=== PATIENT | female | born 1950 | race American Indian/Alaskan Native ===

== ENCOUNTER 2020-10-22 06:35 | Emergency (ER) | payer MEDICARE ==
[2020-10-22] MEDS ORDERED: ASPIRIN 81 MG TAB CHEW PO ONE (07:55)
--- NOTE | 2020-10-22 07:59 | Event Note ---
ED Screening Note Date of service: 10/22/20 Time: 07:56 ED Screening Note: 70-year-old female patient with history of stroke, heart murmur, multiple strokes with residual right lower extremity weakness, diabetes, and hypertension presents to the emergency department with complaints of fatigue and dyspnea on exertion starting yesterday. No preceding fall, trauma, injury. Patient is not anticoagulated. Hypertensive in triage. General: Awake, appropriately interactive, no acute distress. Neck: Supple. Full range of motion intact. Cardiovascular: Regular rate and rhythm, (+) murmur right sternal border. Bilateral pretibial pitting edema. Normal peripheral perfusion. Pulmonary: No respiratory distress. Patient is speaking normally without use of accessory muscles. Skin: No apparent rashes or lesions. Neurological: No facial asymmetry. Speech is clear. Follows commands. Patient is alert and oriented. Musculoskeletal: Moves all four extremities spontaneously with normal range of motion. Psych: Cooperative. Appropriate mood and affect. EKG reviewed in triage shows normal sinus rhythm with a ventricular rate of 84 bpm. Left axis deviation. Poor R wave progression. Lateral T wave inversions present; no old EKG available for comparison. I have greeted and performed a focused rapid initial assessment of this patient. A comprehensive ED assessment and evaluation of the patient, analysis of all test results, and completion of the medical decision-making process will be conducted by additional ED providers. This initial assessment/diagnostic orders/clinical plan/treatment(s) is/are subject to change based on patients health status, clinical progression and re-assessment. Further treatment and workup at subsequent clinical provider's discretion. Patient/guardian urged not to elope from the ED as their condition may be serious if not clinically assessed and managed.
--- NOTE | 2020-10-22 08:36 | XRay Report ---
CHEST 2 VIEWS INDICATION: dyspnea. COMPARISON: None FINDINGS: Support devices: None. Heart: Within normal limits. Lungs/pleura: No acute air space or interstitial disease. No pneumothorax. Additional findings: None. IMPRESSION: No acute findings. Signer Name: Harris Tinsley Jr, MD Signed: 10/22/2020 8:32 AM Workstation Name: [id number]
[2020-10-22 08:39] LABS: Basophils % (Auto) 0.4 % (0.0-1.8); Eosinophils # (Auto) 0.2 K/mm3 (0.0-0.4); Eosinophils % (Auto) 2.4 % (0.0-4.3); Hematocrit 39.1 % (30.3-42.9); Hemoglobin 12.4 gm/dl (10.1-14.3); Lymphocytes # (Auto) 2.4 K/mm3 (1.2-5.4); Lymphocytes % (Auto) 32.3 % (13.4-35.0); Mean Corpuscular HGB Conc 32 % (30-34); Mean Corpuscular Volume 89 fl (79-97); Monocytes # (Auto) 0.7 K/mm3 (0.0-0.8); Monocytes % (Auto) 9.4 % (0.0-7.3); Platelet Count 198 K/mm3 (140-440); Red Cell Distribution Width 15.9 % (13.2-15.2)
[2020-10-22 08:53] LABS: INR 1.02 (0.87-1.13)
[2020-10-22 08:54] LABS: Partial Thromboplastin Time 34.4 Sec. (24.2-36.6)
[2020-10-22 09:11] LABS: Alanine Aminotransferase 15 units/L (7-56); Albumin 3.8 g/dL (3.9-5); BUN/Creatinine Ratio 11; Blood Urea Nitrogen 9 mg/dL (7-17); Calcium 9.1 mg/dL (8.4-10.2); Hemolysis Index 6
--- NOTE | 2020-10-22 11:16 | Emergency Department Report ---
HPI - General Chief Complaint: Weakness Time Seen by Provider: 10/22/20 10:58 - HPI HPI: Room 17 The patient is a 70-year-old female present with a chief complaint of fatigue. The patient states for 1 day she has had fatigue with any type of activity. Patient denies shortness of breath but states at rest she feels fine. Patient denies nausea vomiting or diarrhea. Patient denies history of fever. Patient states last time she felt this way was when she had her intestinal mass that led to her becoming anemic. ED Past Medical Hx - Past Medical History Previous Medical History?: Yes Hx Hypertension: Yes Hx CVA: Yes Hx Diabetes: Yes - Surgical History Past Surgical History?: Yes Additional Surgical History: 2 hip replacements, hernia repair, some intestines removed. - Family History Family history: no significant - Social History Smoking Status: Current Every Day Smoker (1/2 pack/day) Substance Use Type: None (Denies illicit drug use), Alcohol (Occasional) ED Review of Systems ROS: Stated complaint: SICK Other details as noted in HPI Constitutional: weakness Eyes: denies: eye pain ENT: denies: throat pain Respiratory: denies: shortness of breath Cardiovascular: denies: dyspnea on exertion Endocrine: no symptoms reported Gastrointestinal: denies: abdominal pain, nausea, vomiting, diarrhea Genitourinary: denies: dysuria Musculoskeletal: denies: back pain Neurological: denies: headache Physical Exam - Physical Exam Vital Signs: Vital Signs 10/22/20 07:10 Temperature 98.8 F Pulse Rate 76 Respiratory 18 Rate Blood Pressure 204/80 [Right] O2 Sat by Pulse 97 Oximetry Physical Exam: GENERAL: The patient is well-developed well-nourished female lying on stretcher not appearing to be in acute distress. [] HEENT: Normocephalic. Atraumatic. Extraocular motions are intact. Patient has moist mucous membranes. NECK: Supple. Trachea midline CHEST/LUNGS: Clear to auscultation. There is no respiratory distress noted. HEART/CARDIOVASCULAR: Regular. There is no tachycardia. There is no gallop rub or murmur. ABDOMEN: Abdomen is soft, nontender. Patient has normal bowel sounds. There is no abdominal distention. SKIN: There is no rash. There is no edema. There is no diaphoresis. NEURO: The patient is awake, alert, and oriented. The patient is cooperative. The patient has no focal neurologic deficits. The patient has normal speech MUSCULOSKELETAL: There is no evidence of acute injury. ED Course Vital Signs 10/22/20 07:10 Temperature 98.8 F Pulse Rate 76 Respiratory 18 Rate Blood Pressure 204/80 [Right] O2 Sat by Pulse 97 Oximetry ED Medical Decision Making - Lab Data Result diagrams: 10/22/20 08:08 10/22/20 08:08 Laboratory Tests 10/22/20 10/22/20 10/22/20 08:08 08:08 08:08 WBC 7.3 RBC 4.40 Hgb 12.4 Hct 39.1 MCV 89 MCH 28 MCHC 32 RDW 15.9 H Plt Count 198 Lymph % (Auto) 32.3 [place] % (Auto) 9.4 H Eos % (Auto) 2.4 Baso % (Auto) 0.4 Lymph # (Auto) 2.4 [place] # (Auto) 0.7 Eos # (Auto) 0.2 Baso # (Auto) 0.0 Seg Neutrophils % 55.5 Seg Neutrophils # 4.0 PT 13.2 INR 1.02 APTT 34.4 VBG pH Sodium 142 Potassium 4.3 Chloride 105.4 Carbon Dioxide 27 Anion Gap 14 BUN 9 Creatinine 0.8 Estimated GFR > 60 BUN/Creatinine Ratio 11 Glucose 129 H Calcium 9.1 Magnesium 2.00 Total Bilirubin 0.50 AST 16 ALT 15 Alkaline Phosphatase 95 Troponin T < 0.010 NT-Pro-B Natriuret Pep 110.9 Total Protein 6.9 Albumin 3.8 L Albumin/Globulin Ratio 1.2 TSH Free T4 10/22/20 10/22/20 10/22/20 08:08 10:39 Unknown WBC RBC Hgb Hct MCV MCH MCHC RDW Plt Count Lymph % (Auto) [place] % (Auto) Eos % (Auto) Baso % (Auto) Lymph # (Auto) [place] # (Auto) Eos # (Auto) Baso # (Auto) Seg Neutrophils % Seg Neutrophils # PT INR APTT VBG pH 7.324 Sodium Potassium Chloride Carbon Dioxide Anion Gap BUN Creatinine Estimated GFR BUN/Creatinine Ratio Glucose Calcium Magnesium Total Bilirubin AST ALT Alkaline Phosphatase Troponin T < 0.010 NT-Pro-B Natriuret Pep Total Protein Albumin Albumin/Globulin Ratio TSH 1.430 Free T4 1.21 - EKG Data -: EKG Interpreted by Sd EKG shows normal: sinus rhythm Rate: normal - EKG Data When compared to previous EKG there are: previous EKG unavailable Interpretation: nonspecific ST-T wave keny (T wave inversion in lead I and aVL) - Radiology Data Radiology results: report reviewed (Chest x-ray), image reviewed (Chest x-ray) interpreted by me: Chest x-ray-no focal infiltrates, no pneumothorax. [facility] [address] [place] [address] XRay Report Signed Patient: ALONZO JIMÉNEZ MR#: [id number] : 1950 Acct:[id number] Age/Sex: 70 / F ADM Date: 10/22/20 Loc: ED Attending Dr: Eric sargent Physician: ALEIDA ALBERTO Date of Service: 10/22/20 Procedure(s): XR chest routine 2V Accession Number(s): [id number] cc: ALEIDA ALBERTO Fluoro Time In Minutes: CHEST 2 VIEWS INDICATION: dyspnea. COMPARISON: None FINDINGS: Support devices: None. Heart: Within normal limits. Lungs/pleura: No acute air space or interstitial disease. No pneumothorax. Additional findings: None. IMPRESSION: No acute findings. Signer Name: Harris Tinsley Jr, MD Signed: 10/22/2020 8:32 AM Workstation Name: [id number] Transcribed By: TTR Dictated By: HARRIS TINSLEY JR, MD Electronically Aut henticated By: HARRIS TINSLEY JR, MD Signed Date/Time: 10/22/20831 DD/ 1 TD/TT: Print Cancel - Differential Diagnosis Symptomatic anemia, hypothyroidism, hyponatremia, electrolyte imbalance Critical care attestation.: If time is entered above; I have spent that time in minutes in the direct care of this critically ill patient, excluding procedure time. ED Disposition Clinical Impression: Hypertension, Fatigue Disposition: DC-01 TO HOME OR SELFCARE Is pt being admited?: No Does the pt Need Aspirin: No Condition: Stable Instructions: Hypertension (ED), Fatigue, Preventing Hypertension, Managing Your Hypertension Additional Instructions: Return to the emergency department should you develop worsening symptoms, inability to tolerate food or liquids, high fever or any other concerns Referrals: PRIMARY CAREMD [Primary Care Provider] - 3-5 Days Time of Disposition: 13:36
[2020-10-22] MEDS ORDERED: cloNIDine 0.2 MG TAB PO ONE (11:42)
[2020-10-22 13:19] LABS: Free T4 (Free Thyroxine) 1.21 ng/dL (0.76-1.46)
[2020-10-22 13:55] VITALS: BP 179/82
--- NOTE | 2020-10-23 13:51 | Electrocardiograph Report ---
[facility] Test Date: 2020-10-22 Test Time: 07:14:27 Pat Name: ALONZO JIMÉNEZ Department: Room: Gender: F Head Rigger: : 1950 Requested By: CATINA LONG Order Number: [id number] Reading MD: Christiano Ospina Measurements Intervals [place] Rate: 84 P: 64 TX: 175 QRS: 7 QRSD: 95 T: 94 QT: 411 QTc: 486 Interpretive Statements Sinus rhythm Probable left ventricular hypertrophy Nonspecific T abnormalities, lateral leads No previous ECG available for comparison Electronically Signed On 10-23-2020 13:51:12 EDT by Christiano Ospina
== END 2020-10-22 13:50 | disposition home or self-care (01) ==
LOC: ED 06:35
DX: I10 Essential (primary) hypertension (principal); R53.83 Other fatigue; E11.9 Type 2 diabetes mellitus without complications; Z86.73 Personal history of transient ischemic attack (TIA), and cerebral infarction without residual deficits; F17.200 Nicotine dependence, unspecified, uncomplicated; Z98.890 Other specified postprocedural states
CPT/HCPCS: 36415; 71046; 80053; 82805; 83735; 83880; 84439; 84443; 84484; 85025; 85610; 85730; 93005

== ENCOUNTER 2021-01-17 18:50 | Emergency (ER) | payer MEDICARE ==
[2021-01-18] MEDS ORDERED: SODIUM CHLORIDE 0.9% 1000 ML 1,000 ML IV ONE (07:57)
--- NOTE | 2021-01-18 07:58 | Emergency Department Report ---
ED General Adult HPI - General Chief complaint: GI Bleed Stated complaint: BLOOD IN STOOL, UPPER RESP INFECT Time Seen by Provider: 01/18/21 07:37 Source: patient Mode of arrival: Ambulatory Limitations: No Limitations - History of Present Illness Initial comments: 7-year-old female with a past medical history of hypertension, diabetes, anemia, "heart murmur", "bronchitis" and a history of tobacco use presents to the ER today with complaints of black stools and a cough. Patient states that she noticed that she has been having black stools since last week Monday and then today she started with pain in her lower abdomen which has been constant in ruby ure. She states that she had diarrhea about 2 weeks ago for about 2 to 3 days but that resolved after taking Imodium. She reports nausea but no vomiting. She is not currently on any iron supplements, nor has she taken any Pepto-Bismol in the past 3 to 4 weeks. 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 She is not any blood thinners. Patient also states that she started with a cold about a week ago and has been persistent. She reports sinus drainage, nasal congestion, productive cough with white phlegm, she had some mild intermittent wheezing but she states that it went away after taking [id number] Benadryl. She denies any chest pain or shortness of breath. She denies any fever or chills with her cold. She denies any ill contacts. She states that she has been taking NyQuil and Benadryl and Mucinex without much relief. She states that she is COVID-19 vaccinated. She received the maternal vaccine November 2020. She states that since she has been sick she did not take a COVID-19 test. Complaint: Black stools; low abdominal; cough -: week(s) - Related Data Previous Rx's Medication Instructions Recorded Last Taken Type Azithromycin [Zithromax Z-RD] 250 mg PO DAILY #1 pack 01/18/21 Unknown Rx Benzonatate [Tessalon Perles] 100 mg PO Q8HR PRN #30 capsule 01/18/21 Unknown Rx Fluticasone [Flonase] 2 spray NS QDAY #1 bottle 01/18/21 Unknown Rx Levalbuterol Hfa 45 Mcg/Puff 2 puff IH Q4H PRN #1 inhalation 01/18/21 Unknown Rx [Xopenex Hfa (Nf)] Allergies Allergy/AdvReac Type Severity Reaction Status Date / Time No Known Allergies Allergy Unverified 01/17/21 21:26 ED Review of Systems ROS: Stated complaint: BLOOD IN STOOL, UPPER RESP INFECT Other details as noted in HPI Comment: All other systems reviewed and negative Constitutional: denies: chills, fever Eyes: denies: eye pain, eye discharge, vision change ENT: denies: ear pain, throat pain, dental pain, hearing loss, epistaxis, congestion Respiratory: cough. denies: shortness of breath, SOB with exertion, SOB at rest, wheezing Cardiovascular: denies: chest pain, palpitations, dyspnea on exertion, edema, syncope, paroxysmal nocturnal dyspnea Gastrointestinal: abdominal pain, nausea, melena. denies: vomiting, diarrhea, constipation, hematemesis Genitourinary: denies: urgency, dysuria, frequency, hematuria, discharge, abnormal menses, dyspareunia Musculoskeletal: denies: back pain, joint swelling, arthralgia, myalgia Skin: denies: rash, lesions Neurological: denies: headache, weakness, numbness, paresthesias, confusion, abnormal gait, vertigo Psychiatric: denies: anxiety, depression, auditory hallucinations, visual hallucinations, homicidal thoughts, suicidal thoughts Hematological/Lymphatic: denies: easy bleeding, easy bruising, swollen glands ED Past Medical Hx - Past Medical History Previous Medical History?: Yes Hx Hypertension: Yes Hx CVA: Yes Hx Diabetes: Yes Hx Arthritis: Yes - Surgical History Past Surgical History?: Yes Additional Surgical History: 2 hip replacements, hernia repair, some intestines removed. - Social History Smoking Status: Never Smoker - Medications Home Medications: Home Medications Medication Instructions Recorded Confirmed Last Taken Type Azithromycin [Zithromax Z-RD] 250 mg PO DAILY #1 pack 01/18/21 Unknown Rx Benzonatate [Tessalon Perles] 100 mg PO Q8HR PRN #30 capsule 01/18/21 Unknown Rx Fluticasone [Flonase] 2 spray NS QDAY #1 bottle 01/18/21 Unknown Rx Levalbuterol Hfa 45 Mcg/Puff 2 puff IH Q4H PRN #1 inhalation 01/18/21 Unknown Rx [Xopenex Hfa (Nf)] ED Physical Exam - General Limitations: No Limitations General appearance: alert, in no apparent distress - Head Head exam: Present: atraumatic, normocephalic, normal inspection - Eye Eye exam: Present: normal appearance, PERRL, EOMI Pupils: Present: normal accommodation - ENT ENT exam: Present: normal exam, mucous membranes moist, TM's normal bilaterally - Neck Neck exam: Present: normal inspection, full ROM - Respiratory Respiratory exam: Present: normal lung sounds bilaterally, wheezes (Faint expiratory wheezing noted in the left lung field). Absent: respiratory distress, rales, rhonchi, stridor - Cardiovascular Cardiovascular Exam: Present: regular rate, normal rhythm, normal heart sounds - GI/Abdominal GI/Abdominal exam: Present: soft, tenderness (Tenderness to palpation suprapubic area with mild guarding but no rebound, no rigidity and no abdominal distention). Absent: distended, guarding, rebound, rigid - Rectal Rectal exam: Present: normal rectal tone, heme (-) stool, other (Dark green stool noted) - Neurological Exam Neurological exam: Present: alert, oriented X3, CN II-XII intact, normal gait - Psychiatric Psychiatric exam: Present: normal affect, normal mood - Skin Skin exam: Present: intact ED Course Vital Signs 01/17/21 01/18/21 21:28 10:58 Temperature 97.8 F Pulse Rate 83 88 Respiratory 18 18 Rate Blood Pressure 158/72 Blood Pressure 157/82 [Left] O2 Sat by Pulse 93 100 Oximetry ED Medical Decision Making - Lab Data Result diagrams: 01/18/21 08:29 01/18/21 08:29 - Radiology Data Radiology results: report reviewed Patient: ALONZO JIMÉNEZ MR#: [id number] : 1950 Acct:[id number] Age/Sex: 70 / F ADM Date: 01/17/21 Loc: ED Attending Dr: Ordering Physician: MILTON MCDOWELL Date of Service: 01/18/21 Procedure(s): XR chest routine 2V Accession Number(s): [id number] cc: MILTON MCDOWELL Fluoro Time In Minutes: CHEST 2 VIEWS INDICATION: Cough/wheezing/ black stools. COMPARISON: 02/21/2021 FINDINGS: Support devices: None. Heart: Within normal limits. Lungs/pleura: No acute air space or interstitial disease. No pneumothorax. Additional findings: Stable thoracic spondylosis. IMPRESSION: No acute findings. No significant change since 10/22/2020. Signer Name: Harris Tinsley Jr, MD Signed: 01/18/2021 8:54 AM Workstation Name: [id number] Transcribed By: TTR Dictated By: HARRIS TINSLEY JR, MD Electronically Authenticated By: HARRIS TINSLEY JR, MD Signed Date/Time: 01/18/21853 DD/ 2 TD/TT: Patient: ALONZO JIMÉNEZ MR#: [id number] : 1950 Acct:[id number] Age/Sex: 70 / F ADM Date: 01/17/21 Loc: ED Attending Dr: Ordering Physician: MILTON MCDOWELL Date of Service: 01/18/21 Procedure(s): CT abdomen pelvis w con Accession Number(s): [id number] cc: MILTON MCDOWELL CT ABDOMEN AND PELVIS WITH CONTRAST HISTORY: GI Bleed OMNI 300 100ML COMPARISON: None. TECHNIQUE: Axial CT images were obtained through the abdomen and pelvis after 100 cc of IV contrast. Sagittal and coronal reformatted images. All CT scans at this location are performed using CT dose reduction for ALARA by means of automated exposure control. FINDINGS: CT ABDOMEN: Lung Bases: Clear. Liver: No significant abnormality. Biliary: Few tiny gallstones are noted in the deep dependent gallbladder. No wall thickening or pericholecystic fluid. Spleen: No significant abnormality. Unenlarged. Pancreas: No significant abnormality. Adrenals: No significant abnormality. Kidneys: No significant abnormality. Lymphatics: No lymphadenopathy. Vasculature: No significant abnormality. Bowel/Peritoneum: There are scattered diverticula in the ascending, descending and sigmoid colon. Surgical suture line is noted in mid small bowel, correlate with history. Normal appendix. There is no evidence for obstruction, obvious mass or focal inflammation. No convincing site of GI bleeding is detected on standard CT with contrast. CT PELVIS: : Hysterectomy changes are suspected. The bladder is obscured by bilateral hip prostheses. Osseous Structures: Mild osteopenia. Mild to moderate thoracolumbar spondylosis. Bilateral hip replacements appear intact. No fracture or suspicious bony lesion is detected. Additional Findings: Previous ventral wall hernia repair is are identified. There appears to be a small recurrent hernia containing fat along the left side of the graft on axial image 98. IMPRESSION: No acute process is identified. No clear source for GI bleed on standard CT with contrast. Diverticulosis of the colon. Cholelithiasis. Surgical changes as described. Signer Name: Harris Tinsley Jr, MD Signed: 01/18/2021 11:41 AM Workstation Name: [id number] Transcribed By: TTR Dictated By: HARRIS TINSLEY JR, MD Electronically Authenticated By: HARRIS TINSLEY JR, MD Signed Date/Time: 01/18/21 1141 DD/ 1136 TD/TT: - Medical Decision Making 1158: All labs reviewed and shows nothing emergent. Hemoccult was negative. CT abdomen pelvis shows nothing acute. Patient currently resting comfortably. She is not in any acute pain or respiratory distress. She is not toxic or ill-appearing. She appears hydrated. She is neurologically intact with a normal gait in the ER. Repeat vital signs are stable, and she maintained an O2 of 96% when she was ambulated around the ER and she had no complaints of any shortness of breath or chest pain. Her work up today does not suggest acute appendicitis, bowel obstruction, acute cholecystitis, bowel perforation, major GI bleed, severe diverticulitis, abdominal aortic aneurysm, mesenteric ischemia, volvulus, meningitis, ARDS, severe pneumonia, epiglottitis, sepsis or other serious viral/bacterial infection or other significant pathology to warrant further testing, continued ED treatment, admission or surgical evaluation at this point. Discussed lab and imaging results with patient. Exact cause of her dark stools at this time unclear. She will be treated for URI/Sinusitis/bronchitis. Recommend that she follows up closely with PCP but to return if she is worse. Patient expressed understanding of instructions and agreed with plan. Pt was stable a time of d/c. Critical care attestation.: If time is entered above; I have spent that time in minutes in the direct care of this critically ill patient, excluding procedure time. ED Disposition Clinical Impression: Abdominal pain, Sinusitis, Bronchitis Disposition: DC- TO HOME OR SELFCARE Is pt being admited?: No Does the pt Need Aspirin: No Condition: Stable Instructions: Abdominal Pain, Adult, Sinusitis, Adult, Xnsh-cu-Hung, Acute Bronchitis, Adult, Chronic Bronchitis (ED) Additional Instructions: Use of Flonase and Xopenex as prescribed. Take the Z-Rd and the Tessalon Perles as prescribed. Follow-up with one of the primary care doctor listed on your discharge instructions. Return to the ER if your symptoms changes or worsens in any way. Prescriptions: Fluticasone [Flonase] 2 spray NS QDAY #1 bottle Benzonatate [Tessalon Perles] 100 mg PO Q8HR PRN #30 capsule PRN Reason: Cough Levalbuterol Hfa 45 Mcg/Puff [Xopenex Hfa (Nf)] 2 puff IH Q4H PRN #1 inhalation PRN Reason: Wheezing Azithromycin [Zithromax Z-RD] 250 mg PO DAILY #1 pack Referrals: TABBY FOURNIER MD [Staff Physician] - 3-5 Days [facility] [Provider Group] - 3-5 Days Forms: Accompanied Note Time of Disposition: 11:57
--- NOTE | 2021-01-18 08:58 | XRay Report ---
CHEST 2 VIEWS INDICATION: Cough/wheezing/ black stools. COMPARISON: 02/21/2021 FINDINGS: Support devices: None. Heart: Within normal limits. Lungs/pleura: No acute air space or interstitial disease. No pneumothorax. Additional findings: Stable thoracic spondylosis. IMPRESSION: No acute findings. No significant change since 10/22/2020. Signer Name: Harris Tinsley Jr, MD Signed: 01/18/2021 8:54 AM Workstation Name: [id number]
[2021-01-18 09:10] LABS: Basophils % (Auto) 0.3 % (0.0-1.8); Eosinophils # (Auto) 0.2 K/mm3 (0.0-0.4); Eosinophils % (Auto) 2.9 % (0.0-4.3); Hematocrit 38.2 % (30.3-42.9); Hemoglobin 12.3 gm/dl (10.1-14.3); Lymphocytes # (Auto) 2.8 K/mm3 (1.2-5.4); Lymphocytes % (Auto) 38.1 % (13.4-35.0); Mean Corpuscular HGB Conc 32 % (30-34); Mean Corpuscular Volume 90 fl (79-97); Monocytes # (Auto) 0.7 K/mm3 (0.0-0.8); Monocytes % (Auto) 9.5 % (0.0-7.3); Platelet Count 195 K/mm3 (140-440); Red Blood Count 4.25 M/mm3 (3.65-5.03); Red Cell Distribution Width 14.5 % (13.2-15.2)
[2021-01-18 09:10] LABS: Amorphous Crystals,Urine Few; Bacteria,Urine 1+ /HPF (Negative); Bilirubin,Urine NEG (Negative); Blood,Urine NEG (Negative); Color,Urine Yellow (Yellow); Mucus,Urine FEW /HPF; Protein,Urine <15 mg/dL mg/dL (Negative)
[2021-01-18 10:11] LABS: Alanine Aminotransferase 11 units/L (7-56); Albumin 4.5 g/dL (3.9-5); Blood Urea Nitrogen 11 mg/dL (7-17); Hemolysis Index 13
[2021-01-18 10:15] LABS: BUN/Creatinine Ratio 16
[2021-01-18 11:00] VITALS: BP 157/82
--- NOTE | 2021-01-18 11:45 | Cat Scan Report ---
CT ABDOMEN AND PELVIS WITH CONTRAST HISTORY: GI Bleed OMNI 300 100ML COMPARISON: None. TECHNIQUE: Axial CT images were obtained through the abdomen and pelvis after 100 cc of IV contrast. Sagittal and coronal reformatted images. All CT scans at this location are performed using CT dose re duction for ALARA by means of automated exposure control. FINDINGS: CT ABDOMEN: Lung Bases: Clear. Liver: No significant abnormality. Biliary: Few tiny gallstones are noted in the deep dependent gallbladder. No wall thickening or peric holecystic fluid. Spleen: No significant abnormality. Unenlarged. Pancreas: No significant abnormality. Adrenals: No significant abnormality. Kidneys: No significant abnormality. Lymphatics: No lymphadenopathy. Vasculature: No significant abnormality. Bowel/Peritoneum: There are scattered diverticula in the ascending, descending and sigmoid colon. Pedro gical suture line is noted in mid small bowel, correlate with history. Normal appendix. There is no e vidence for obstruction, obvious mass or focal inflammation. No convincing site of GI bleeding is det ected on standard CT with contrast. CT PELVIS: : Hysterectomy changes are suspected. The bladder is obscured by bilateral hip prostheses. Osseous Structures: Mild osteopenia. Mild to moderate thoracolumbar spondylosis. Bilateral hip replac ements appear intact. No fracture or suspicious bony lesion is detected. Additional Findings: Previous ventral wall hernia repair is are identified. There appears to be a sma ll recurrent hernia containing fat along the left side of the graft on axial image 98. IMPRESSION: No acute process is identified. No clear source for GI bleed on standard CT with contrast. Diverticulosis of the colon. Cholelithiasis. Surgical changes as described. Signer Name: Harris Tinsley Jr, MD Signed: 01/18/2021 11:41 AM Workstation Name: [id number]
== END 2021-01-18 12:21 | disposition home or self-care (01) ==
LOC: ED 18:50
DX: J40 Bronchitis, not specified as acute or chronic (principal); R10.9 Unspecified abdominal pain; J32.9 Chronic sinusitis, unspecified; I10 Essential (primary) hypertension; E11.9 Type 2 diabetes mellitus without complications; Z87.891 Personal history of nicotine dependence; Z86.73 Personal history of transient ischemic attack (TIA), and cerebral infarction without residual deficits
CPT/HCPCS: 36415; 71046; 74177; 80053; 81001; 82271; 83690; 83735; 85025; 96360; 99284; J7030; Q9967